=== PATIENT | female | born 1970 | race Caucasian/White ===

== ENCOUNTER → 2023-06-30 12:51 | Outpatient (CLI) | payer MEDICARE, MEDICAID, SELFPAY | PROVIDERS: PCP Family Medicine; Visit Provider Family Medicine | DX: G47.33 Obstructive sleep apnea (adult) (pediatric) (principal); G47.36 Sleep related hypoventilation in conditions classified elsewhere | CPT/HCPCS: G0399 ==

== ENCOUNTER 2023-08-04 21:46 | Emergency (ER) | payer MEDICARE, MEDICAID, SELFPAY ==
[2023-08-04 22:05] VITALS: BP 163/97; PULSE 88; RESP 16; O2SAT 98
[2023-08-04 22:08] VITALS: BP 163/97; PULSE 90; RESP 18; TEMP 36.8; O2SAT 99; BMI 23.1
--- NOTE | 2023-08-04 22:08 | ED_ITS ---
Discharge Plan Disposition Patient Disposition: Home, Self-Care Condition: Good Chief Complaint: Back Pain/Injury Prescriptions Prescriptions: No Action alprazolam 1 mg tablet 1 mg PO BID duloxetine 20 mg capsule,delayed release(DR/EC) 20 mg PO DAILY hydroxyzine HCl 10 mg tablet 10 mg PO Q8H PRN albuterol sulfate 2.5 mg /3 mL (0.083 %) solution for nebulization 2.5 mg inhalation Q4-6H PRN (Reason: shortness of breath or wheezing) Qty: 75 2RF albuterol sulfate 90 mcg/actuation HFA aerosol inhaler 2 puff inhalation Q4-6H PRN (Reason: shortness of breath or wheezing) Qty: 8.5 5RF fluoxetine 40 mg capsule 40 mg PO DAILY Patient Comments: TAKE 1 CAPSULE BY MOUTH EVERY DAY omeprazole 20 mg capsule,delayed release(DR/EC) 20 mg PO DAILY 90 Days Qty: 90 1RF acetaminophen-caffeine 500-65 mg tablet 1 tab PO Q6H PRN Referrals Follow up/Referrals: Anmol Wood MD [Primary Care Provider] - See instructions Activity Restrictions/Add. Instructions Additional Instructions/Restrictions: Take Tylenol and Motrin for symptoms and follow up closely with your primary care provider for continued management. Return for any new or worsening symptoms. Clinical Impressions Clinical Impression: Colitis Instructions Patient Instructions: DI for Low Back Pain Discharge ED Provider: Annel Aparicio General Adult HPI <Brett Vaz MD - Last Filed: 08/04/23 23:52> General Chief complaint: Back Pain/Injury Stated complaint: right side pain constipation Time Seen by Provider: 08/04/23 21:49 History of Present Illness HPI narrative: 52-year-old female history of lupus, bariatric surgery in the past presenting with right abdominal pain. This abdominal pain has been going on for 4 months. Patient came to the emergency department today because it has not gone away. Patient states that it starts in her right flank and radiates into the right lower side of her abdomen. She states that she is worried about her appendix. She states that she has recently been seen at another emergency department and abdominal x-ray showed that she was constipated. She took a couple of bowel regimen medications that day, had some liquid stool, no large-volume bowel movement. This was about a week ago. No fevers or chills, nausea or vomiting, overlying skin changes, dysuria, hematuria, or any other concerns. Related Data Home Medications Medication Instructions Recorded Confirmed duloxetine 20 mg capsule,delayed 20 mg PO DAILY Depression 10/03/22 07/20/23 release hydroxyzine HCl 10 mg tablet 10 mg PO Q8H PRN 10/03/22 07/20/23 fluoxetine 40 mg capsule 40 mg PO DAILY 01/24/23 07/20/23 alprazolam 1 mg tablet 1 mg PO BID anxiety 07/14/23 07/20/23 acetaminophen-caffeine 500 mg-65 1 tab PO Q6H PRN 07/20/23 07/20/23 mg tablet Previous Rx's Medication Instructions Recorded omeprazole 20 mg capsule,delayed 20 mg PO DAILY 90 days #90 caps 01/24/23 release albuterol sulfate 2.5 mg/3 mL 2.5 mg (3 mL) inhalation Q4-6H PRN 04/26/23 (0.083 %) solution for nebulization shortness of breath or wheezing #75 mL albuterol sulfate 90 mcg/actuation 2 puff inhalation Q4-6H PRN 04/26/23 aerosol inhaler shortness of breath or wheezing #8.5 grams Allergies Allergy/AdvReac Type Severity Reaction Status Date / Time acetaminophen [From Vicodin] Allergy Verified 07/20/23 11:06 hydrocodone [From Vicodin] Allergy Verified 07/20/23 11:06 [facility] <Brett Vaz MD - Last Filed: 08/04/23 23:52> [facility] Disclaimer: The information contained in this section may have been updated after the patient was seen, as this information can be updated by other users. Medical History Anxiety Chronic GERD Depression Lupus Sleep apnea Surgical History History of gastric bypass History of hysterectomy for benign disease History of throat surgery Family History (Updated 07/20/23 @ 11:09 by Barbara Rogers) Mother Thyroid disorder COPD (chronic obstructive pulmonary disease) Cancer Father Cancer Sister Cancer Other Diabetes Hyperlipidemia Hypertension Stroke Social History (Updated 07/20/23 @ 11:10 by Barbara Rogers) Smoking Status: Former smoker second hand exposure: Yes alcohol intake: current counseling given: Yes substance use type: denies use current occupational status: disabled Travel in the last 8 weeks: None household members: none housing: apartment marital status: <Brett Vaz MD - Last Filed: 08/04/23 23:52> ROS Obtained: Yes All systems reviewed & no additional complaints except as documented Physical Exam <Brett Vaz MD - Last Filed: 08/04/23 23:52> General General appearance: alert and in no apparent distress Head Head exam: atraumatic and normocephalic Eye Eye exam: Present normal appearance, PERRL and EOMI ENT ENT exam: Present mucous membranes moist Neck Neck exam: Present normal inspection, full ROM and trachea midline Respiratory Respiratory exam: Absent respiratory distress, wheezes, stridor, accessory muscle use or prolonged expiratory phase Cardiovascular Cardiovascular exam: Present normal rhythm Abdominal Exam Abdominal exam: Present soft; Absent distention, tenderness, guarding, rebound or rigidity Extremities Exam Extremities exam: Absent edema Neurological Exam Neurological exam: Present alert, oriented X3, CN II-XII intact and normal gait; Absent motor sensory deficit Skin Skin exam: Present warm and dry; Absent diaphoresis or erythema Medical Decision Making <Brett Vaz MD - Last Filed: 08/04/23 23:52> Medical Records Medical records reviewed: Yes I reviewed the patient's medical records. Derik Inquiry Pt receiving controlled substance: No Derik was queried for this patient: No Vital Signs: 08/04/23 22:05 08/04/23 22:08 08/04/23 22:30 Temperature 98.2 F Temperature Source Oral Pulse Rate 88 80 Pulse Rate [Left Radial] 90 Respiratory Rate 16 18 Blood Pressure 163/97 H 155/98 H Blood Pressure [Right Arm] 163/97 H Blood Pressure Mean 119 118 Blood Pressure Mean [Right Arm] 119 02 Sat by Pulse Oximetry 98 99 97 Oxygen Delivery Method Room Air Room Air Lab Data Lab Results 08/04/23 21:05: Urine Color Yellow, Urine Appearance Clear, Urine pH 6.0, Ur Specific [place] 1.025, Urine Protein Negative, Urine Glucose (UA) Negative, Urine Ketones Negative, Urine Blood Trace-i, Urine Nitrate Negative, Urine Bilirubin 1+ A, Urine Urobilinogen 0.2, Ur Leukocyte Esterase Negative, Urine RBC Occasional, Urine WBC None, Ur Squamous Epith Cells 3-5, Urine Bacteria None 08/04/23 22:30: WBC 5.9, RBC 4.60, Hgb 14.2, Hct 42.6, MCV 92.6, MCH 30.9, MCHC 33.4, RDW 14.1, Plt Count 160, MPV 9.1, Neut % (Auto) 51.5, Lymph % (Auto) 37.5, Mcminn % (Auto) 2.6, Eos % (Auto) 6.9, Baso % (Auto) 1.4, Neut # (Auto) 3.1, Lymph # (Auto) 2.2, Mcminn # (Auto) 0.2, Eos # (Auto) 0.4, Baso # (Auto) 0.1, Sodium 143, Potassium 3.7, Chloride 110 H, Carbon Dioxide 27, Anion Gap 9.7, BUN 14, Creatinine 0.80, Estimated Creat Clear 79, Estimated GFR 75, Est GFR ( Amer) 91, Glucose 114 H, Calcium 9.0, Total Bilirubin 0.4, AST 29, ALT 19, Alkaline Phosphatase 65, Total Protein 7.9, Albumin 4.3, Globulin 3.6 H, Albumin/Globulin Ratio 1.2, Lipase 119 08/04/23 22:30 08/04/23 22:30 Orders (Tests/Meds): ED MEDICATIONS Generic Name Dose Route Start Last Admin Trade Name Freq PRN Reason Stop Dose Admin Sodium Chloride 10 ml 08/04/23 22:41 Sodium Chloride 0.9% 10ml Flush Syringe IV 09/03/23 22:40 NEEDED PRN Maintain IV Site Discontinued Medications Generic Name Dose Route Start Last Admin Trade Name Freq PRN Reason Stop Dose Admin Iopamidol 75 ml 08/04/23 23:06 08/04/23 23:07 Iopamidol-370 (76%);100ml Bottle IV 08/04/23 23:07 75 ml ONCE ONE Administration Ketorolac Tromethamine 15 mg 08/04/23 22:11 08/04/23 22:35 Ketorolac 30mg/Ml Vial IV 08/04/23 22:12 15 mg ONCE ONE Administration Sodium Chloride 10 ml 08/04/23 23:06 08/04/23 23:07 Sodium Chloride 0.9% 10ml Syr (Rad Only) IV 08/04/23 23:07 10 ml ONCE ONE Administration ORDERS Category Date Time Status CT abdomen pelvis w con Stat Cat Scan 08/04/23 22:10 Completed CBC w/Auto Diff [Complete Blood Count Auto Diff] Stat Lab 08/04/23 22:30 Completed CMP [Comprehensive Metabolic Panel] Stat Lab 08/04/23 22:30 Completed Lipase Stat Lab 08/04/23 22:30 Completed UA [Urinalysis and Microscopic] Stat Lab 08/04/23 21:05 Completed Medical Decision Narrative: 52-year-old female history of lupus, bariatric surgery in the past presenting with right abdominal pain. This abdominal pain has been going on for 4 months. Patient came to the emergency department today because it has not gone away. Patient states that it starts in her right flank and radiates into the right lower side of her abdomen. She states that she is worried about her appendix. She states that she has recently been seen at another emergency department and abdominal x-ray showed that she was constipated. She took a couple of bowel regimen medications that day, had some liquid stool, no large-volume bowel movement. This was about a week ago. No fevers or chills, nausea or vomiting, overlying skin changes, dysuria, hematuria, or any other concerns. History was obtained via conversation with patient. On arrival, patient hemodynamically stable, alert, [oriented x4, ][appropriate, ]GCS [15], moving all extremities spontaneously, pupils equal and reactive to light. Full physical exam performed and significant for well-appearing woman in no acute distress. Abdomen is soft, nontender, nondistended, and not made worse on my physical exam. No flank tenderness. No overlying skin changes. Differential includes PUD, gastritis, enteritis, gastroenteritis, pancreatitis, SBO, colitis, diverticulitis, nephrolithiasis, UTI, cholecystitis, choledocholithiasis, appendicitis, hepatitis, torsion, aortic pathology, mesenteric ischemia among others. Patient was given [] for symptomatic management[ and correction of underlying abnormalities]. Workup independently interpreted and significant for []. See radiology read for full review of final results. [Independent interpretation of EKG shows] []. [Nexus/[place] CT head/heart/[id number]/Wells/PERC/Age adjusted/YEARS/MELD]. [] was considered, but deemed unnecessary due to []. On reevaluation, [additional tests/treatment]. [Consultants] [obs] Given patient presentation, workup, history, this most likely represents []. Less likely []. [SDH] <Annel Aparicio MD - Last Filed: 08/04/23 23:53> Vital Signs: 08/04/23 22:05 08/04/23 22:08 08/04/23 22:30 Temperature 98.2 F Temperature Source Oral Pulse Rate 88 80 Pulse Rate [Left Radial] 90 Respiratory Rate 16 18 Blood Pressure 163/97 H 155/98 H Blood Pressure [Right Arm] 163/97 H Blood Pressure Mean 119 118 Blood Pressure Mean [Right Arm] 119 02 Sat by Pulse Oximetry 98 99 97 Oxygen Delivery Method Room Air Room Air Lab Data Lab Results 08/04/23 21:05: Urine Color Yellow, Urine Appearance Clear, Urine pH 6.0, Ur Specific [place] 1.025, Urine Protein Negative, Urine Glucose (UA) Negative, Urine Ketones Negative, Urine Blood Trace-i, Urine Nitrate Negative, Urine Bilirubin 1+ A, Urine Urobilinogen 0.2, Ur Leukocyte Esterase Negative, Urine RBC Occasional, Urine WBC None, Ur Squamous Epith Cells 3-5, Urine Bacteria None 08/04/23 22:30: WBC 5.9, RBC 4.60, Hgb 14.2, Hct 42.6, MCV 92.6, MCH 30.9, MCHC 33.4, RDW 14.1, Plt Count 160, MPV 9.1, Neut % (Auto) 51.5, Lymph % (Auto) 37.5, Mcminn % (Auto) 2.6, Eos % (Auto) 6.9, Baso % (Auto) 1.4, Neut # (Auto) 3.1, Lymph # (Auto) 2.2, [place]minn # (Auto) 0.2, Eos # (Auto) 0.4, Baso # (Auto) 0.1, Sodium 143, Potassium 3.7, Chloride 110 H, Carbon Dioxide 27, Anion Gap 9.7, BUN 14, Creatinine 0.80, Estimated Creat Clear 79, Estimated GFR 75, Est GFR ( Amer) 91, Glucose 114 H, Calcium 9.0, Total Bilirubin 0.4, AST 29, ALT 19, Alkaline Phosphatase 65, Total Protein 7.9, Albumin 4.3, Globulin 3.6 H, Albumin/Globulin Ratio 1.2, Lipase 119 Orders (Tests/Meds): ED MEDICATIONS Generic Name Dose Route Start Last Admin Trade Name Greg PRN Reason Stop Dose Admin Sodium Chloride 10 ml 08/04/23 22:41 Sodium Chloride 0.9% 10ml Flush Syringe IV 09/03/23 22:40 NEEDED PRN Maintain IV Site Discontinued Medications Generic Name Dose Route Start Last Admin Trade Name Greg PRN Reason Stop Dose Admin Iopamidol 75 ml 08/04/23 23:06 08/04/23 23:07 Iopamidol-370 (76%);100ml Bottle IV 08/04/23 23:07 75 ml ONCE ONE Administration Ketorolac Tromethamine 15 mg 08/04/23 22:11 08/04/23 22:35 Ketorolac 30mg/Ml Vial IV 08/04/23 22:12 15 mg ONCE ONE Administration Sodium Chloride 10 ml 08/04/23 23:06 08/04/23 23:07 Sodium Chloride 0.9% 10ml Syr (Rad Only) IV 08/04/23 23:07 10 ml ONCE ONE Administration ORDERS Category Date Time Status CT abdomen pelvis w con Stat Cat Scan 08/04/23 22:10 Completed CBC w/Auto Diff [Complete Blood Count Auto Diff] Stat Lab 08/04/23 22:30 Completed CMP [Comprehensive Metabolic Panel] Stat Lab 08/04/23 22:30 Completed Lipase Stat Lab 08/04/23 22:30 Completed UA [Urinalysis and Microscopic] Stat Lab 08/04/23 21:05 Completed Medical Decision Narrative: 52-year-old female history of lupus, bariatric surgery in the past presenting with right abdominal pain. This abdominal pain has been going on for 4 months. Patient came to the emergency department today because it has not gone away. Patient states that it starts in her right flank and radiates into the right lower side of her abdomen. She states that she is worried about her appendix. She states that she has recently been seen at another emergency department and abdominal x-ray showed that she was constipated. She took a couple of bowel regimen medications that day, had some liquid stool, no large-volume bowel movement. This was about a week ago. No fevers or chills, nausea or vomiting, overlying skin changes, dysuria, hematuria, or any other concerns. History was obtained via conversation with patient. On arrival, patient hemodynamically stable, alert, [oriented x4, ][appropriate, ]GCS [15], moving all extremities spontaneously, pupils equal and reactive to light. Full physical exam performed and significant for well-appearing woman in no acute distress. Abdomen is soft, nontender, nondistended, and not made worse on my physical exam. No flank tenderness. No overlying skin changes. Differential includes PUD, gastritis, enteritis, gastroenteritis, pancreatitis, SBO, colitis, diverticulitis, nephrolithiasis, UTI, cholecystitis, choledocholithiasis, appendicitis, hepatitis, torsion, aortic pathology, mesenteric ischemia among others. I assumed care of patient pending labs and CT imaging. Labs were unremarkable including CBC and CMP, UA noninfectious, CT showing transverse and ascending mild colitis. Patient is hemodynamically stable and on reevaluation remains in no acute distress. Discussed findings and recommended symptomatic management and close follow-up with PCP. Discharged in stable condition. Critical Care <Brett Vaz MD - Last Filed: 08/04/23 23:52> Critical Care Time Critical Care Time: No
--- NOTE | 2023-08-04 22:10 | CT_ITS ---
PROCEDURE INFORMATION: Exam: CT Abdomen And Pelvis With Contrast Exam date and time: 08/04/2023 11:01 PM Age: 52 years old Clinical indication: Abdominal pain; Additional info: R flank pain radiating to rlq TECHNIQUE: Imaging protocol: Computed tomography of the abdomen and pelvis with contrast. Radiation optimization: All CT scans at this facility use at least one of these dose optimization techniques: automated exposure control; mA and/or kV adjustment per patient size (includes targeted exams where dose is matched to clinical indication); or iterative reconstruction. Contrast material: ISOVUE; Contrast volume: 75 ml; Contrast route: IV; COMPARISON: No relevant prior studies available. FINDINGS: Lungs: No acute finding. Diaphragm: A small hiatal hernia is present. Liver: Normal. No mass. Gallbladder and bile ducts: Normal. No calcified stones. No ductal dilation. Pancreas: Normal. No ductal dilation. Spleen: Normal. No splenomegaly. Adrenal glands: Normal. No mass. Kidneys and ureters: Normal. No hydronephrosis. Stomach and bowel: Postsurgical changes of the proximal stomach. Mild wall thickening of the ascending and transverse colon. Appendix: No evidence of appendicitis. Intraperitoneal space: Unremarkable. No free air. No significant fluid collection. Vasculature: There is [id number] calcific atherosclerotic disease of the aorta without aneurysm or dissection. Lymph nodes: Unremarkable. No enlarged lymph nodes. Urinary bladder: Unremarkable as visualized. Reproductive: The uterus is absent. Bones/joints: Mild scoliosis of the spine convex left centered at L 2 3. Moderate to severe degenerative disc disease at L2-L3. No acute fracture. Soft tissues: Unremarkable. IMPRESSION: Findings consistent with mild colitis of the ascending and transverse colon.
[2023-08-04 22:14] LABS: Microscopic, Urine URINE MICROSCOPIC (MICROSCOPIC)
[2023-08-04 22:21] LABS: Appearance,Urine CLEAR (Clear); Blood, Urine TRACE-I (Negative); Color,Urine YELLOW (Yellow); Glucose,Urine (UA) Negative (Negative); Ketones,Urine Negative (Negative); Leukocyte Esterase,Urine Negative (Negative); Nitrate,Urine Negative (Negative); Protein,Urine Negative (Negative); Specific Gravity, Urine 1.025 (1.005-1.030); Urobilinogen,Urine 0.2 EU/dl (0.2)
[2023-08-04 22:30] VITALS: BP 155/98; PULSE 80; O2SAT 97
[2023-08-04 22:30] LABS: Bilirubin,Urine 1+ (Negative)
[2023-08-04] MEDS: KETOROLAC 30MG/ML VIAL 15 MG IV (22:35)
[2023-08-04 22:40] LABS: Basophils # 0.1 K/mm3 (0-0.2); Basophils % 1.4 % (0.1-2.0); Eosinophils # 0.4 K/mm3 (0.0-0.4); Eosinophils % 6.9 % (0.1-12.0); Hematocrit 42.6 % (37.0-47.0); Hemoglobin 14.2 g/dL (12.2-16.2); Lymphocytes # 2.2 K/mm3 (0.7-4.5); Lymphocytes % 37.5 % (10-50); Mean Corpuscular HGB Conc 33.4 g/dL (31.8-35.4); Mean Corpuscular Hemoglobin 30.9 pg (27.0-31.2); Mean Corpuscular Volume 92.6 fl (81-99); Mean Platelet Volume 9.1 fl (7.4-10.4); Monocytes # 0.2 K/mm3 (0.1-1.0); Monocytes % 2.6 % (1.7-9.3); Neutrophils # 3.1 K/mm3 (1.8-7.8); Neutrophils % 51.5 % (37.0-80.0); Platelet Count 160 K/mm3 (142-424); Red Cell Distribution Width 14.1 % (11.5-17.5); White Blood Count 5.9 K/mm3 (4.8-10.8)
[2023-08-04 22:45] LABS: Chloride 110 mmol/L (98-107); Potassium 3.7 mmoL/L (3.5-5.1); Sodium 143 mmol/L (136-145)
[2023-08-04 22:47] LABS: Blood Urea Nitrogen 14 mg/dl (7-17); Creatinine Clearance Estimated 79 mL/min (50-200); Estimated Glomerular Filt Rate 75 ml/min (>60); GFR (African American) 91 ML/MIN (>60)
[2023-08-04 22:48] LABS: Alanine Aminotransferase 19 U/L (12-78); Albumin Level 4.3 g/dl (3.5-5.0); Albumin/Globulin Ratio 1.2 (1.1-1.8); Alkaline Phosphatase 65 U/L (38-126); Anion Gap 9.7 mEq/L (5-15); Aspartate Amino Transferase 29 U/L (14-36); Bilirubin,Total 0.4 mg/dl (0.2-1.3); Carbon Dioxide 27 mmol/L (22.0-30.0); Globulin 3.6 g/dL (1.3-3.2); Glucose 114 mg/dl (74-100); Lipase 119 U/L (23-300); Total Protein,Serum 7.9 g/dl (6.3-8.2)
[2023-08-04 23:04] LABS: RBC,Urine Occasional #/hpf (0-3)
[2023-08-04] MEDS: SODIUM CHLORIDE 0.9% 10ML SYR (RAD ONLY) 10 ML IV (23:07)
[2023-08-04] MEDS: IOPAMIDOL-370 (76%);100ML BOTTLE 75 ML IV (23:07)
[2023-08-04 23:59] VITALS: BP 166/90; PULSE 75; RESP 18; TEMP 36.8
== END 2023-08-05 00:06 | disposition home or self-care (01) ==
PROVIDERS: Emergency Medicine; Emergency Provider Emergency Medicine; PCP Family Medicine
DX: K52.9 Noninfective gastroenteritis and colitis, unspecified (principal); R10.31 Right lower quadrant pain; K21.9 Gastro-esophageal reflux disease without esophagitis; G47.30 Sleep apnea, unspecified; Z87.891 Personal history of nicotine dependence
CPT/HCPCS: 74177; 80053; 81001; 83690; 85025; 96374; 99285; Q9967

== ENCOUNTER 2023-09-01 15:32 | Outpatient (CLI) | payer MEDICARE, MEDICAID, SELFPAY ==
--- NOTE | 2023-09-01 15:35 | XR_ITS ---
FINAL REPORT CLINICAL HISTORY: lumbago COMPARISON: None FINDINGS: 3 views of the lumbar spine were obtained. There is no evidence of fracture or dislocation. The vertebral alignment is normal. There is moderate degenerative change of the lumbar spine with leftward curvature. There are mild vascular calcifications. No acute paraspinous soft tissue abnormalities identified. IMPRESSION: Mild degenerative change without acute bony abnormality. Reviewed, Interpreted and Dictated by Tapan Hughes III, MD Transcribed by Tabatha Hilton Authenticated and [facility]
== END 2023-09-01 23:59 | disposition home or self-care (01) ==
LOC: RAD 15:33
PROVIDERS: PCP Nurse Practitioner Family; Visit Provider Nurse Practitioner Family
DX: M32.9 Systemic lupus erythematosus, unspecified (principal); M54.50 Low back pain, unspecified
CPT/HCPCS: 72100

== ENCOUNTER → 2023-10-25 20:31 | Outpatient (CLI) | payer MEDICARE, MEDICAID, SELFPAY | LOC: SL 20:34 | PROVIDERS: PCP Nurse Practitioner Family; Visit Provider Specialist | DX: G47.33 Obstructive sleep apnea (adult) (pediatric) (principal) | CPT/HCPCS: 95811 ==

== ENCOUNTER 2023-11-27 08:58 | Day surgery (SDC) | payer MEDICARE, MEDICAID, SELFPAY ==
[2023-09-28 11:33] VITALS: BMI 25.8
[2023-11-27] VITALS (9 sets, daily range): BP systolic 121–165; BP diastolic 66–98; PULSE 74–89; RESP 16–21; TEMP 36.1–36.7; O2SAT 97–100
--- NOTE | 2023-11-27 09:04 | XR_ITS ---
FINAL REPORT CLINICAL HISTORY: Acute cough PREOP FINDINGS: A single portable view of the chest was obtained. The heart size and pulmonary vascularity are within normal limits. The mediastinum is within normal limits. No acute pulmonary abnormality is identified. The bony thorax is intact. IMPRESSION: No active cardiopulmonary disease. Reviewed, Interpreted and Dictated by Tapan Hughes III, MD Transcribed by Elisa Torre Authenticated and [facility]
--- NOTE | 2023-11-27 09:32 | ECG_ITS ---
APPROVED REPORT Exam: Resting ECG HR:76 bpm ECG Measurements Heart Rate 76 AXES ID 165 P 59 QRSd 88 QRS 75 QT 401 T 41 QTc 431 Conclusion SINUS RHYTHM NORMAL ECG UNCONFIRMED REPORT Electronically signed by : Eric Barrett MD 11/29/2023 08:34:08
[2023-11-27 09:40] LABS: Basophils % 0.9 % (0.1-2.0); Eosinophils # 0.4 K/mm3 (0.0-0.4); Eosinophils % 8.8 % (0.1-12.0); Hematocrit 38.7 % (37.0-47.0); Lymphocytes # 1.8 K/mm3 (0.7-4.5); Lymphocytes % 37.9 % (10-50); Mean Corpuscular HGB Conc 33.5 g/dL (31.8-35.4); Mean Corpuscular Hemoglobin 29.6 pg (27.0-31.2); Mean Corpuscular Volume 88.4 fl (81-99); Mean Platelet Volume 9.2 fl (7.4-10.4); Monocytes # 0.3 K/mm3 (0.1-1.0); Monocytes % 5.4 % (1.7-9.3); Neutrophils # 2.3 K/mm3 (1.8-7.8); Platelet Count 154 K/mm3 (142-424); Red Blood Count 4.38 M/mm3 (4.20-5.40); Red Cell Distribution Width 14.5 % (11.5-17.5); White Blood Count 4.9 K/mm3 (4.8-10.8)
[2023-11-27 09:45] LABS: Chloride 112 mmol/L (98-107); Potassium 3.7 mmoL/L (3.5-5.1); Sodium 142 mmol/L (136-145)
[2023-11-27 09:48] LABS: Alanine Aminotransferase 9 U/L (12-78); Albumin Level 4.2 g/dl (3.5-5.0); Albumin/Globulin Ratio 1.4 (1.1-1.8); Alkaline Phosphatase 56 U/L (38-126); Anion Gap 7.7 mEq/L (5-15); Aspartate Amino Transferase 20 U/L (14-36); Bilirubin,Total 0.6 mg/dl (0.2-1.3); Blood Urea Nitrogen 13 mg/dl (7-17); Carbon Dioxide 26 mmol/L (22.0-30.0); Creatinine Clearance Estimated 84 mL/min (50-200); Estimated Glomerular Filt Rate 75 ml/min (>60); GFR (African American) 90 ML/MIN (>60); Glucose 97 mg/dl (74-100); Total Protein,Serum 7.2 g/dl (6.3-8.2)
[2023-11-27 09:49] LABS: Calcium 8.8 mg/dl (8.4-10.2)
--- NOTE | 2023-11-27 09:57 | EXP.ANES.CKL ---
[facility] Disclaimer: The information contained in this section may have been updated after the patient was seen, as this information can be updated by other users. Medical History GEMINI (obstructive sleep apnea) History of seizures COPD (chronic obstructive pulmonary disease) Tobacco abuse, in remission Vocal cord polyp Depression Anxiety Sleep apnea Chronic GERD Lupus Surgical History History of hysterectomy for benign disease History of throat surgery History of gastric bypass Family History Mother Thyroid disorder COPD (chronic obstructive pulmonary disease) Cancer thyroid Father Cancer lung Sister Cancer cervical Other Diabetes Hyperlipidemia Hypertension Stroke Social History Smoking Status: Former smoker second hand exposure: Yes alcohol intake: never counseling given: Yes substance use type: denies use current occupational status: disabled Travel in the last 8 weeks: None household members: none housing: apartment marital status: [facility] Anesthesia Checklist Patient Identification Patient Identification: Arm Band Structural Data Admitted From: Home Planned Operative Procedure/s: Microlaryngoscopy with Excision of Left Vocal Cord Lesion Consent for Planned Operative Procedure(s) Verified: Yes Verified Documents: Surgical Consent and History and Physical NPO Status Verified Time NPO: 00:00 Additional verifications Anesthesia Reactions: No Hx Blood Transfusions: No Airway Assessment Mallampati Score:: Class II C-Spine Mobility Assessed: Yes TMJ Mobility Assessed: Yes Dentition: Good Dentition Neurological Assessment Level of Consciousness: Awake, Alert and Appropriate Anesthesia Plan Anesthesia Risk discussed: Yes Anesthesia Plan: Verified ASA Class: III Anesthesia Type: General
--- NOTE | 2023-11-27 10:30 | P.OP_ITS ---
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 A suspension laryngoscope was introduced after a dental protector was applied on her upper incisors. Larynx was suspended and was obvious that she had severe polypoid degeneration of both cords primarily on the left side but also on the right. As it was extending up to the anterior commissure, I elected to make the incision on the lateral cord on the right side and extend down the length of the vocal cord. Is unable to remove portion of the polypoid degeneration of the mucosa but also the subcutaneous gelatinous material making up the polyp. On the left side, she had more polypoid degeneration I did remove more mucosa on the lateral aspect of the superior portion of the vocal cord. There was mucosal tissue medially where the vocal cords would meet. Topical 4% lidocaine and Afrin was applied on cottonoids. After adequate time was allowed for vasoconstriction the procedure was terminated. Patient was awakened in the operating room taken to recovery in good condition. Specimens from the right and left vocal cord were sent for pathologic confirmation. Condition: stable Disposition: PACU Complications:: None
--- NOTE | 2023-11-27 10:38 | EXP.ANES.I ---
[facility] Anesthesia Record Part I Anesthesia Record I Intake, IV Amount: 800 Hydration: Adequate Estimated blood loss (mL): 10 Urine output (mL): 0 Blood Pressure: 121/66 SaO2: 100 Pulse Rate: 89 Airway Patency: Patent Respiratory Rate: 21 Temperature: 97 F Patient is:: Drowsy Stable to PACU at:: 10:35
--- NOTE | 2023-11-27 13:22 | EXP.ANES.II ---
[facility] Anesthesia Record Part II Anesthesia Record Part II Discharge Time: 11:05 Destination: Surgical Day Care (OP Surgery) PACU nurse assessment reviewed?: Yes Patient Condition:: Good Anesthesia Complications:: None Swallowing reflex intact?: Yes Airway Patency: Patent Cyanosis?: No Blood Pressure: 145/91 SaO2: 100 Respiratory Rate: 17 Pulse Rate: 80 Temperature: 98 F Mental Status: Alert & Oriented Pain level:: 0 Nausea and/or vomitting:: None Intake, IV Amount: 0 Hydration: Adequate
== END 2023-11-27 11:35 | disposition home or self-care (01) ==
PROVIDERS: PCP Family Medicine; Visit Provider Otolaryngology
PROC: 0CBS8ZX Excision of Larynx, Via Natural or Artificial Opening Endoscopic, Diagnostic (ICD-10-PCS; CPT 31535; principal; 2023-11-27 11:00)
DX: J38.1 Polyp of vocal cord and larynx (principal); J38.4 Edema of larynx; R49.0 Dysphonia; Z09 Encounter for follow-up examination after completed treatment for conditions other than malignant neoplasm; Z87.891 Personal history of nicotine dependence
CPT/HCPCS: 31535; 71045; 80053; 85025; 88305; 93005; J1100; J2250; J2405; J3010